=== PATIENT | male | born 2000 | race Caucasian/White ===

== ENCOUNTER 2021-06-14 13:41 | Emergency (ER) | payer SELFPAY ==
[2021-06-14 15:34] LABS: SARS-COV-2 RT PCR NEGATIVE (NEGATIVE)
--- NOTE | 2021-06-14 16:09 | RAD REPORT ---
EXAM DESCRIPTION: RAD - Chest Single View - 06/14/2021 3:40 pm CLINICAL HISTORY: SOB COMPARISON: No comparisons FINDINGS: No evidence of edema or pneumonia. The heart size is within normal limits.No acute osseous abnormality. No significant pleural effusions or pneumothorax. IMPRESSION: No acute cardiopulmonary disease.
--- NOTE | 2021-06-14 16:40 | ER ---
Nurse's Notes [facility] Name: Edd Vasquez Age: 20 yrs Sex: Male : 2000 Arrival Date: 06/14/2021 Time: 13:49 Bed 9 Private MD: Diagnosis: Encounter for screening, unspecified-Coronavirus;Acute stress reaction Presentation: 06/14 14:17 Chief complaint: Patient states: "trouble breathing the past few days. I thought it was ss panic attacks, but the breathing is slowly getting worse.". Coronavirus screen: Client presents with at least one sign or symptom that may indicate coronavirus-19. Standard/surgical mask placed on the client. Provider contacted for isolation considerations. Ebola Screen: Patient denies exposure to infectious person. Patient denies travel to an Ebola-affected area in the 21 days before illness onset. Initial Sepsis Screen: Does the patient meet any 2 criteria? No. Patient's initial sepsis screen is negative. Does the patient have a suspected source of infection? No. Patient's initial sepsis screen is negative. Risk Assessment: Do you want to hurt yourself or someone else? Patient reports no desire to harm self or others. Onset of symptoms was June 11, 2021. 14:17 Method Of Arrival: Ambulatory ss 14:17 Acuity: ERNESTO 4 ss Historical: - Allergies: 14:18 No Known Allergies; ss - Home Meds: 14:18 sertraline 50 mg oral tab [Active]; levothyroxine 75 mcg cap 1 cap once daily [Active]; ss - PMHx: 14:18 Anxiety; Hypothyroidism; ss - PSHx: 14:18 None; ss - Immunization history:: Client reports receiving the 2nd dose of the Covid vaccine. - Social history:: Smoking status: Patient denies any tobacco usage or history of. Assessment: 17:14 Reassessment: Patient appears in no apparent distress at this time. Patient is alert, vg1 oriented x 3, equal unlabored respirations, skin warm/dry/pink. Vital Signs: 14:17 BP 119 / 77; Pulse 78; Resp 16; Temp 97.3(TE); Pulse Ox 98% on R/A; Weight 95.25 kg; ss Height 5 ft. 11 in. (180.34 cm); Pain 0/10; 14:17 Body Mass Index 29.29 (95.25 kg, 180.34 cm) ED Course: 13:49 Patient arrived in ED. mr 14:18 Triage completed. ss 14:18 Arm band placed on right wrist. ss 14:30 Milind Rankin NP is PHCP. pm1 14:30 Bhupendra Wilkinson MD is Attending Physician. pm1 15:40 Chest Single View XRAY In Process Unspecified. EDMS 17:15 Patient did not have IV access during this emergency room visit. vg1 Administered Medications: No medications were administered Outcome: 16:39 Discharge ordered by MD. pm1 17:14 Discharged to home ambulatory. vg1 17:14 Condition: stable 17:14 Discharge instructions given to patient, Instructed on discharge instructions, follow up and referral plans. Demonstrated understanding of instructions, follow-up care. 17:15 Patient left the ED. vg1 Signatures: Dispatcher [employer] EDMA Juhi Larsen mr Ce La RN RN Milind Rankin NP [employer] pm1 Virginia Arnold RN RN vg1
--- NOTE | 2021-06-14 16:40 | EDPHYS ---
Physician Documentation [facility] Name: Edd Vasquez Age: 20 yrs Sex: Male : 2000 Arrival Date: 06/14/2021 Time: 13:49 Bed 9 Private MD: ED Physician Bhupendra Wilkinson HPI: 06/14 14:35 This 20 yrs old Male presents to ER via Ambulatory with complaints of Covid pm1 testing. 14:35 Onset: The symptoms/episode began/occurred 3 day(s) ago. Associated signs and symptoms: pm1 Pertinent positives: shortness of breath, Improved with walking. Anxiety, Pertinent negatives: abdominal pain, cough, fever, Nausea vomiting and diarrhea. The patient has not experienced similar symptoms in the past. The patient has not recently seen a physician. Patient with new onset of shortness of breath that is improved with walking. Patient received a second Covid vaccine 2 days ago. Patient with history anxiety and is concerned his symptoms indicate he has a Covid infection and presented in ER for request of testing. Historical: - Allergies: 14:18 No Known Allergies; ss - Home Meds: 14:18 sertraline 50 mg oral tab [Active]; levothyroxine 75 mcg cap 1 cap once daily [Active]; ss - PMHx: 14:18 Anxiety; Hypothyroidism; ss - PSHx: 14:18 None; ss - Immunization history:: Client reports receiving the 2nd dose of the Covid vaccine. - Social history:: Smoking status: Patient denies any tobacco usage or history of. ROS: 14:35 Constitutional: Negative for fever, chills, and weight loss, Cardiovascular: Negative pm1 for chest pain, palpitations, and edema. 14:35 Abdomen/GI: Negative for abdominal pain, nausea, vomiting, diarrhea, and constipation, Back: Negative for injury and pain, MS/Extremity: Negative for injury and deformity, Skin: Negative for injury, rash, and discoloration. 14:35 ENT: Negative for injury, pain, and discharge, Neuro: Negative for headache, weakness, numbness, tingling, and seizure. 14:35 Respiratory: Positive for shortness of breath, Negative for cough. 14:35 All other systems are negative. Exam: 14:35 Constitutional: This is a well developed, well nourished patient who is awake, alert, pm1 and in no acute distress. Head/Face: Normocephalic, atraumatic. 14:35 Back: No spinal tenderness. No costovertebral tenderness. Full range of motion. Skin: Warm, dry with normal turgor. Normal color with no rashes, no lesions, and no evidence of cellulitis. MS/ Extremity: Pulses equal, no cyanosis. Neurovascular intact. Full, normal range of motion. 14:35 Eyes: Exam is negative for acute changes, Extraocular movements: no acute changes, Conjunctiva: no acute changes, no injection, Sclera: no acute changes, icterus, is not appreciated. 14:35 ENT: Exam is negative for acute changes, External ear(s): are unremarkable, Ear canal(s): are normal, TM's: no acute changes, Mouth: Lips: normal, Oral mucosa: normal, pink and intact, moist. 14:35 Cardiovascular: Rate: normal, Rhythm: regular, Pulses: no pulse deficits are appreciated. 14:35 Respiratory: Exam negative for acute changes, respiratory distress, shortness of breath, Breath sounds: are clear throughout. 14:35 Abdomen/GI: Inspection: abdomen appears normal, Palpation: abdomen is soft and non-tender, in all quadrants. 14:35 Neuro: Exam negative for acute changes, Orientation: is normal, Mentation: is normal, Motor: is normal, moves all fours. 14:35 Psych: Behavior/mood is anxious, Affect is animated, Oriented to person, place, time. Vital Signs: 14:17 BP 119 / 77; Pulse 78; Resp 16; Temp 97.3(TE); Pulse Ox 98% on R/A; Weight 95.25 kg; ss Height 5 ft. 11 in. (180.34 cm); Pain 0/10; 14:17 Body Mass Index 29.29 (95.25 kg, 180.34 cm) ss MDM: 14:44 Patient medically screened. pm1 16:37 Data reviewed: vital signs. Data interpreted: Pulse oximetry: on room air is 98 %. pm1 Interpretation: normal. Counseling: I had a detailed discussion with the patient and/or guardian regarding: the historical points, exam findings, and any diagnostic results supporting the discharge/admit diagnosis, lab results, radiology results, the need for outpatient follow up, to return to the emergency department if symptoms worsen or persist or if there are any questions or concerns that arise at home. 06/14 14:34 Order name: Strep; Complete Time: 15:59 ss 06/14 14:35 Order name: Chest Single View XRAY; Complete Time: 16:36 pm1 06/14 15:18 Order name: Throat Culture EDMS 06/14 15:35 Order name: COVID-19/FLU A+B; Complete Time: 15:59 EDMS Administered Medications: No medications were administered Disposition: 18:35 Co-signature as Attending Physician, Bhupendra Wilkinson MD I agree with the assessment and tw4 plan of care. Disposition Summary: 06/14/21 16:39 Discharge Ordered Location: Home pm1 Problem: new pm1 Symptoms: have improved pm1 Condition: Stable pm1 Diagnosis - Encounter for screening, unspecified - Coronavirus pm1 - Acute stress reaction pm1 Followup: pm1 - With: Emergency Department - When: As needed - Reason: Worsening of condition Followup: pm1 - With: Private Physician - When: 2 - 3 days - Reason: Recheck today's complaints, Continuance of care, Re-evaluation by your physician Discharge Instructions: - Discharge Summary Sheet pm1 - Stress, Adult pm1 Forms: - Medication Reconciliation Form pm1 - Thank You Letter pm1 - Antibiotic Education pm1 - Prescription Opioid Use pm1 Signatures: Dispatcher [employer] EDMS Ce La, RN RN ss Milind Rankin, [employer] pm1 Bhupendra Wilkinson MD MD tw4 Corrections: (The following items were deleted from the chart) 14:49 14:35 Influenza Screen (A \T\ B)+BA.LAB.BRZ ordered. EDMS EDMS 14:50 14:35 CORONAVIRUS+MR.LAB.BRZ ordered. EDMS EDMS
[2021-06-14 17:25] VITALS: BP 119/77; TEMP 97.3; O2SAT 98
== END 2021-06-14 17:15 | disposition home or self-care (01) ==
LOC: ER 13:41
DX: F43.0 Acute stress reaction (principal); Z20.822 Contact with and (suspected) exposure to COVID-19
CPT/HCPCS: 0240U; 71045; 87070; 87081; 99283